=== PATIENT | female | born 1995 | race Caucasian/White ===

== ENCOUNTER 2019-05-20 13:00 | Outpatient (CLI) | payer BC ==
--- NOTE | 2019-05-20 13:43 | ULT ---
Exam right lower extremity venous ultrasound with Doppler HISTORY: Pain. Numbness. COMPARISON: None TECHNIQUE: Grayscale, color flow, Doppler imaging and spectral waveform analysis of the right lower e xtremity venous system FINDINGS: There is compressibility, presence of flow and augmentation in the common femoral vein, femoral vein and popliteal vein. There is flow in the greater saphenous vein, profunda femoral vein and posterior tibial vein IMPRESSION: No evidence of thrombus in the right lower extremity deep venous system
== END 2019-05-20 13:01 | disposition home or self-care (01) ==
LOC: SCSULT 13:00
PROVIDERS: ATTEND Nurse Practitioner Family
DX: R79.1 Abnormal coagulation profile (principal)